=== PATIENT | female | born 1940 | race African-American/Black ===

== ENCOUNTER 2016-03-08 12:48 | Emergency (ER) | payer MEDICARE, BC, OTHER ==
[~2016-03-08] VITALS: Ht 152.4 cm; Wt 50.0 kg
[~2016-03-08 12:48] MED LIST: ATEN50TA PO; CLOB0.0571 TOPICAL; ESTR.3 PO; FLUT50SP EACH NARE; LORA-361 PO; MULT-136 PO; UREA1CRE3 TD; mega red PO
[2016-03-08 12:51] VITALS: BP 221/95; PULSE 64; RESP 12; TEMP 97.5; O2SAT 100
--- NOTE | 2016-03-08 14:01 | PD ---
HPI Chief Complaint: Headache Time Seen by Provider: 14:00 Travel History International Travel<30 days: No Contact w/Intl Traveler<30days: No Traveled to known affect area: No History of Present Illness HPI 75-year-old female with history of hypertension presents to the emergency department for evaluation of a headache that started one hour ago. She said preceding the headache she had a visual aura which she would have in the past associated with migraine headaches. She states she hasn't had a migraine headache in many many years. Denies any nausea vomiting. No fever chills. No focal deficits or weakness. She has no other symptoms to report. PFSH Past Medical History Cardiovascular Problems: Yes Hypertension: Yes Past Surgical History Hysterectomy: Yes Tonsillectomy: Yes Other Surgery: Yes (neck biopsy, lumpectomy) Social History Alcohol Use: Yes (occas) Tobacco Use: No Substance Use: No Allergies-Medications (Allergen,Severity, Reaction): Coded Allergies: Sulfa (Verified Allergy, Severe, 03/08/16) Reported Meds & Prescriptions Reported Meds & Active Scripts Active Premarin (Estrogens Conjugated) 0.3 Mg Tab 0.3 Mg PO DAILY Atenolol 50 Mg Tab 50 Mg PO DAILY Fluticasone Nasal [place] 50 Mcg/Act Naspr 100 Mcg EACH NARE DAILY 50 mcg/spray [place] Lo 40 (Urea) 40 % Cre 1 Ml TD BID Clobetasol Emollient Topical 0.05% Cream 1 Applic TOPICAL BID Reported Claritin (Loratadine) 10 Mg Tab 10 Mg PO DAILY Multi Vitamin with Iron (Multiple Vitamins W/ Iron) 1 Tab Tab 1 Tab PO DAILY [daniel red] 1 Tab PO DAILY Review of Systems Except as stated in HPI: all other systems reviewed are Neg Physical Exam Narrative GENERAL: Well-nourished female patient, ambulatory no acute distress SKIN: Warm and dry. HEAD: Atraumatic. Normocephalic. EYES: Pupils equal and round. No scleral icterus. No injection or drainage. ENT: No nasal bleeding or discharge. Mucous membranes pink and moist. NECK: Trachea midline. No JVD. CARDIOVASCULAR: Regular rate and rhythm. No murmur appreciated. RESPIRATORY: No accessory muscle use. Clear to auscultation. Breath sounds equal bilaterally. GASTROINTESTINAL: Abdomen soft, non-tender, nondistended. Hepatic and splenic margins not palpable. MUSCULOSKELETAL: No obvious deformities. No clubbing. No cyanosis. No edema. NEUROLOGICAL: Awake and alert. No obvious cranial nerve deficits. Motor grossly within normal limits. Normal speech. PSYCHIATRIC: Appropriate mood and affect; insight and judgment normal. Data Data Last Documented VS Vital Signs Date Time Temp Pulse Resp B/P Pulse Ox O2 Delivery O2 Flow Rate FiO2 03/08/16 16:30 64 16 165/80 96 Room Air 03/08/16 12:51 97.5 Orders Electrocardiogram (03/08/16 13:59) Basic Metabolic Panel (Bmp) (03/08/16 13:59) Ckmb (Isoenzyme) Profile (03/08/16 13:59) Complete Blood Count With Diff (03/08/16 13:59) Magnesium (Mg) (03/08/16 13:59) Prothrombin Time / Inr (Pt) (03/08/16 13:59) Act Partial Throm Time (Ptt) (03/08/16 13:59) Troponin I (03/08/16 13:59) Ct Brain W/O Iv Contrast(Rout) (03/08/16 ) CKMB (03/08/16 14:20) CKMB% (03/08/16 14:20) Labs Laboratory Tests Test 03/08/16 14:20 White Blood Count 4.5 TH/MM3 Red Blood Count 4.36 MIL/MM3 Hemoglobin 14.1 GM/DL Hematocrit 41.9 % Mean Corpuscular Volume 96.2 FL Mean Corpuscular Hemoglobin 32.3 PG Mean Corpuscular Hemoglobin 33.5 % Concent Red Cell Distribution Width 12.8 % Platelet Count 405 TH/MM3 Mean Platelet Volume 7.6 FL Neutrophils (%) (Auto) 56.4 % Lymphocytes (%) (Auto) 34.9 % Monocytes (%) (Auto) 6.9 % Eosinophils (%) (Auto) 0.9 % Basophils (%) (Auto) 0.9 % Neutrophils # (Auto) 2.5 TH/MM3 Lymphocytes # (Auto) 1.6 TH/MM3 Monocytes # (Auto) 0.3 TH/MM3 Eosinophils # (Auto) 0.0 TH/MM3 Basophils # (Auto) 0.0 TH/MM3 CBC Comment DIFF FINAL Differential Comment Prothrombin Time 10.7 SEC Prothromb Time International 1.0 RATIO Ratio Activated Partial 24.7 SEC Thromboplast Time Sodium Level 136 MEQ/L Potassium Level 3.8 MEQ/L Chloride Level 104 MEQ/L Carbon Dioxide Level 23.7 MEQ/L Anion Gap 8 MEQ/L Blood Urea Nitrogen 13 MG/DL Creatinine 0.82 MG/DL Estimat Glomerular Filtration 83 ML/MIN Rate Random Glucose 83 MG/DL Calcium Level 8.5 MG/DL Magnesium Level 1.8 MG/DL Total Creatine Kinase 105 U/L Creatine Kinase MB 1.6 NG/ML Troponin I LESS THAN 0.02 NG/ML MDM Medical Decision Making Medical Screen Exam Complete: Yes Emergency Medical Condition: Yes Medical Record Reviewed: Yes Differential Diagnosis Hypertension essential versus secondary versus hypertensive crisis versus hypertensive urgency versus intracranial etiology Narrative Course 75 year-old female presents to the emergency department for evaluation of a headache. Patient is quite hypertensive here in triage. Workup was initiated. Once a bed becomes available, patient will be transferred and care assumed by that provider. Jocelyne De Leon Mar 08, 2016 14:00
[2016-03-08 15:06] LABS: AUTOMATED NEUTROPHIL # 2.5 TH/MM3 (1.8-7.7); BASOPHIL % 0.9 % (0.0-2.0); EOSINOPHIL % 0.9 % (0.0-4.0); HEMATOCRIT 41.9 % (35.0-46.0); HEMO FLAGS DIFF FINAL; LYMPH % 34.9 % (9.0-44.0); LYMPHOCYTE # 1.6 TH/MM3 (1.0-4.8); MEAN CELL VOLUME 96.2 FL (80.0-100.0); MEAN CORPUSCULAR HEMOGLOBIN 32.3 PG (27.0-34.0); MEAN CORPUSCULAR HGB CONC 33.5 % (32.0-36.0); MONO % 6.9 % (0.0-8.0); NEUT % 56.4 % (16.0-70.0); PLATELET COUNT 405 TH/MM3 (150-450); RED BLOOD COUNT 4.36 MIL/MM3 (4.00-5.30); RED CELL DISTRIBUTION WIDTH 12.8 % (11.6-17.2); WHITE BLOOD COUNT 4.5 TH/MM3 (4.0-11.0)
--- NOTE | 2016-03-08 15:09 | RADRPT ---
EXAM DATE/TIME: 03/08/2016 14:48 [facility] COMPARISON: No previous studies available for comparison. INDICATIONS : Cephalgia. RADIATION DOSE: 49.20 CTDIvol (mGy) MEDICAL HISTORY : Hypertension. Cardiovascular disease SURGICAL HISTORY : Hysterectomy. ENCOUNTER: Initial ACUITY: 1 day PAIN SCALE: 5/10 LOCATION: Bilateral cranial TECHNIQUE: Multiple contiguous axial images were obtained of the head. Using automated exposure control and adj ustment of the mA and/or kV according to patient size, radiation dose was kept as low as reasonably a chievable to obtain optimal diagnostic quality images. FINDINGS: CEREBRUM: The ventricles are normal for age. No evidence of midline shift, mass lesion, hemorrhage or acute in farction. No extra-axial fluid collections are seen. POSTERIOR FOSSA: The cerebellum and brainstem are intact. The 4th ventricle is midline. The cerebellopontine angle i s unremarkable. EXTRACRANIAL: The visualized portion of the orbits is intact. SKULL: The calvaria is intact. No evidence of skull fracture. CONCLUSION: Normal examination. Erasto Perez MD on March 08, 2016 at 15:08 Board Certified Radiologist. This report was verified electronically.
[2016-03-08 15:20] LABS: ANION GAP 8 MEQ/L (5-15); BICARBONATE 23.7 MEQ/L (21.0-32.0); BLOOD UREA NITROGEN 13 MG/DL (7-18); CHLORIDE 104 MEQ/L (98-107); GLOMERULAR FILTRATION RATE 83 ML/MIN (>89); MAGNESIUM 1.8 MG/DL (1.5-2.5); POTASSIUM 3.8 MEQ/L (3.5-5.1); SODIUM (NA) 136 MEQ/L (136-145)
[2016-03-08 15:23] LABS: CREATINE KINASE 105 U/L (26-192)
[2016-03-08 15:24] LABS: APTT (PATIENT) 24.7 SEC (24.3-30.1); PROTHROMBIN TIME - PATIENT 10.7 SEC (9.8-11.6)
[2016-03-08 15:39] LABS: CKMB 1.6 NG/ML (0.5-3.6)
[2016-03-08 16:30] VITALS: BP 165/80; PULSE 64; RESP 16; O2SAT 96
--- NOTE | 2016-03-08 16:41 | PD ---
Physical Exam Date Seen by Provider: Mar 08, 2016 Narrative For full history and physical examination please see previous provider's note. Patient states me that she had a headache that started after she woke up this morning, not unlike headaches she's had in the past but she has not had one recently. She went to her primary doctor's office which was closer lunch and was advised to come to the emergency department. Upon my assessment patient is currently pain-free and would like to go home. Data Data Last Documented VS Vital Signs Date Time Temp Pulse Resp B/P Pulse Ox O2 Delivery O2 Flow Rate FiO2 03/08/16 16:30 64 16 165/80 96 Room Air 03/08/16 12:51 97.5 Orders Electrocardiogram (03/08/16 13:59) Basic Metabolic Panel (Bmp) (03/08/16 13:59) Ckmb (Isoenzyme) Profile (03/08/16 13:59) Complete Blood Count With Diff (03/08/16 13:59) Magnesium (Mg) (03/08/16 13:59) Prothrombin Time / Inr (Pt) (03/08/16 13:59) Act Partial Throm Time (Ptt) (03/08/16 13:59) Troponin I (03/08/16 13:59) Ct Brain W/O Iv Contrast(Rout) (03/08/16 ) CKMB (03/08/16 14:20) CKMB% (03/08/16 14:20) Labs Laboratory Tests Test 03/08/16 14:20 White Blood Count 4.5 TH/MM3 Red Blood Count 4.36 MIL/MM3 Hemoglobin 14.1 GM/DL Hematocrit 41.9 % Mean Corpuscular Volume 96.2 FL Mean Corpuscular Hemoglobin 32.3 PG Mean Corpuscular Hemoglobin 33.5 % Concent Red Cell Distribution Width 12.8 % Platelet Count 405 TH/MM3 Mean Platelet Volume 7.6 FL Neutrophils (%) (Auto) 56.4 % Lymphocytes (%) (Auto) 34.9 % Monocytes (%) (Auto) 6.9 % Eosinophils (%) (Auto) 0.9 % Basophils (%) (Auto) 0.9 % Neutrophils # (Auto) 2.5 TH/MM3 Lymphocytes # (Auto) 1.6 TH/MM3 Monocytes # (Auto) 0.3 TH/MM3 Eosinophils # (Auto) 0.0 TH/MM3 Basophils # (Auto) 0.0 TH/MM3 CBC Comment DIFF FINAL Differential Comment Prothrombin Time 10.7 SEC Prothromb Time International 1.0 RATIO Ratio Activated Partial 24.7 SEC Thromboplast Time Sodium Level 136 MEQ/L Potassium Level 3.8 MEQ/L Chloride Level 104 MEQ/L Carbon Dioxide Level 23.7 MEQ/L Anion Gap 8 MEQ/L Blood Urea Nitrogen 13 MG/DL Creatinine 0.82 MG/DL Estimat Glomerular Filtration 83 ML/MIN Rate Random Glucose 83 MG/DL Calcium Level 8.5 MG/DL Magnesium Level 1.8 MG/DL Total Creatine Kinase 105 U/L Creatine Kinase MB 1.6 NG/ML Troponin I LESS THAN 0.02 NG/ML [facility] Medical Record Reviewed: Yes Supervised Visit with DELILAH: No Interpretation(s) Last Impressions Head CT 03/08/16 0000 Signed Impressions: Service Date/Time: Tuesday, March 08, 2016 14:48 - CONCLUSION: Normal examination. Erasto Perez MD Laboratory Tests Test 03/08/16 14:20 White Blood Count 4.5 TH/MM3 Red Blood Count 4.36 MIL/MM3 Hemoglobin 14.1 GM/DL Hematocrit 41.9 % Mean Corpuscular Volume 96.2 FL Mean Corpuscular Hemoglobin 32.3 PG Mean Corpuscular Hemoglobin 33.5 % Concent Red Cell Distribution Width 12.8 % Platelet Count 405 TH/MM3 Mean Platelet Volume 7.6 FL Neutrophils (%) (Auto) 56.4 % Lymphocytes (%) (Auto) 34.9 % Monocytes (%) (Auto) 6.9 % Eosinophils (%) (Auto) 0.9 % Basophils (%) (Auto) 0.9 % Neutrophils # (Auto) 2.5 TH/MM3 Lymphocytes # (Auto) 1.6 TH/MM3 Monocytes # (Auto) 0.3 TH/MM3 Eosinophils # (Auto) 0.0 TH/MM3 Basophils # (Auto) 0.0 TH/MM3 CBC Comment DIFF FINAL Differential Comment Prothrombin Time 10.7 SEC Prothromb Time International 1.0 RATIO Ratio Activated Partial 24.7 SEC Thromboplast Time Sodium Level 136 MEQ/L Potassium Level 3.8 MEQ/L Chloride Level 104 MEQ/L Carbon Dioxide Level 23.7 MEQ/L Anion Gap 8 MEQ/L Blood Urea Nitrogen 13 MG/DL Creatinine 0.82 MG/DL Estimat Glomerular Filtration 83 ML/MIN Rate Random Glucose 83 MG/DL Calcium Level 8.5 MG/DL Magnesium Level 1.8 MG/DL Total Creatine Kinase 105 U/L Creatine Kinase MB 1.6 NG/ML Troponin I LESS THAN 0.02 NG/ML Vital Signs Date Time Temp Pulse Resp B/P Pulse Ox O2 Delivery O2 Flow Rate FiO2 03/08/16 16:30 64 16 165/80 96 Room Air 03/08/16 12:51 97.5 64 12 221/95 100 Room Air Differential Diagnosis Migraine versus cluster headache versus hypertensive urgency versus hemorrhage versus other Narrative Course Patient is a 74-year-old female who presented to emergency department for evaluation of a headache. Patient is neurologically intact. Upon initial assessment her blood pressure was elevated, patient's blood pressure was reassessed at 165/80. Patient is a history of hypertension and takes atenolol and a baby aspirin daily. CT scan of the brain was negative. Labs are unremarkable. Troponin is negative. Coags are unremarkable. Patient was encouraged to follow-up with her primary doctor. She was further encouraged return to emergency department for any new or worsening symptoms. Patient verbalized understanding of instructions. Patient is stable for discharge. Diagnosis Primary Impression: Headache Qualified Code: R51 - Acute nonintractable headache, unspecified headache type Referrals: Lakia Kong MD 1 day Patient Instructions: Acute Headache (ED), General Instructions Additional Instruction: Follow-up with your primary doctor Return to emergency department with any new or worsening symptoms Med/Other Pt SpecificInfo: No Change to Meds Disposition: 01 DISCHARGE HOME Condition: Stable Cinthia Myrick Mar 08, 2016 16:40
== END 2016-03-08 17:16 | disposition home or self-care (01) ==
LOC: NEPB 12:48
DX: R51 Headache (principal); I10 Essential (primary) hypertension; Z79.899 Other long term (current) drug therapy
CPT/HCPCS: 70450; 80048; 82550; 82552; 83735; 84484; 85025; 85610; 85730